=== PATIENT | female | born 1965 | race Caucasian/White ===

== ENCOUNTER 2024-12-02 19:39 | Emergency (ER) | payer MEDICAID, SELFPAY ==
[2024-12-02] VITALS (10 sets, daily range): BP systolic 138–164; BP diastolic 72–90; PULSE 62–76; RESP 14–26; TEMP 36.4; O2SAT 95–98; BMI 25.0
--- NOTE | 2024-12-02 23:04 | DI.CT.S_ITS ---
PROCEDURE: CT LUMBAR SPINE WO CON INDICATIONS: BACK pain TECHNIQUE: Noncontrast 3 mm thick sections acquired from the T12 level to the sacrum. Sagittal and coronal reformats were constructed. For radiation dose reduction, the following was used: automated exposure control. COMPARISON: None. FINDINGS: Image quality: Excellent. Bones: There is normal bony alignment. No acute vertebral body compression fractures. No suspicious lytic or blastic bony lesions. No pars defects. T12-L1: Mild loss of disc height and mild degenerative endplate changes. No significant disc bulge, canal stenosis or neural foraminal narrowing. L1-L2: Unremarkable. L2-L3: Unremarkable. L3-L4: Mild degenerative endplate changes are seen. Mild broad-based, slightly more right-sided disc bulge and bilateral facet arthrosis with mild right-sided neural foraminal narrowing. No central canal stenosis. L4-L5: Degenerative endplate changes. Broad-based disc bulge and bilateral facet arthrosis with [id number] central canal stenosis and moderate to severe bilateral neural foraminal narrowing. L5-S1: Diffuse disc herniation with bilateral facet arthrosis causing [id number] central canal stenosis and moderate bilateral neural foraminal narrowing. Soft tissues: No retroperitoneal masses or hematomas. Visualized aorta is normal in caliber. IMPRESSION: 1. No acute compression fracture or spondylolisthesis in lumbar spine. No suspicious bony lesions. 2. Mild spondylitic changes are noted at L3-4 through L5-S1 levels causing various degrees of central canal stenosis and bilateral neural foraminal narrowing as above. 3. No gross paraspinous soft tissue abnormalities. Dictated by: Suleiman Alfonso M.D. on 12/02/2024 at 23:39 Approved by: Suleiman Alfonso M.D. on 12/02/2024 at 23:44
[2024-12-02] MEDS: IBUPROFEN 400 MG TABLET 800 MG PO (23:16)
--- NOTE | 2024-12-02 23:29 | ED_ITS ---
HPI - Back Pain/Injury General Chief Complaint: Back Pain/Injury Stated Complaint: Sciatica Time Seen by Provider: 12/02/24 19:39 Source: patient and EMS History of Present Illness HPI Narrative: 59y F hx of sciatica x 8 months previously on lyrica, meloxicam, methacarbamol, presents with initially left-sided back pain radiating down the leg and now also today to the right side of the back radiating down the leg as well. She denies any bowel or bladder incontinence fever chills body aches urinary complaints. She was seen by the spine surgeon who ordered an MRI that is pending. Lyrica she is unable to take as an started to make her legs swell all the other medicines have not worked up to this point. Other than what is stated 14 pt review of system is negative. Related Data Previous Rx's ?Medication ?Instructions ?Recorded hydrocodone 5 mg-acetaminophen 325 1 tab PO Q4-6H PRN pain #20 tabs 12/03/24 mg tablet Allergies Allergy/AdvReac Type Severity Reaction Status Date / Time pregabalin (From Lyrica) AdvReac Verified 12/02/24 20:14 Review of Systems Review of Systems ROS Unobtainable: All systems reviewed & are unremarkable except as noted in HPI and below Patient History Smoking Status: Current every day smoker tobacco type: cigarettes Exam Narrative Exam Narrative: GENERAL: [59] year old patient appears stated age. Well-developed patient, in mild distress. HEAD: Atraumatic. Normocephalic. EYES: Pupils equal round and reactive. Extraocular motions intact. No scleral icterus. No injection or drainage. ENT: Nose without bleeding, purulent drainage. Throat without erythema, tonsillar hypertrophy or exudate. Airway patent. NECK: Trachea midline. Non tender CARDIOVASCULAR: Regular rate and rhythm without murmurs, gallops, or rubs. RESPIRATORY: Clear to auscultation. Breath sounds equal bilaterally. No wheezes, rales, or rhonchi. GASTROINTESTINAL: Abdomen soft, non-tender, nondistended. EXTREMITIES: No edema or joint tenderness. BACK: Nontender without deformity or crepitance. No flank tenderness. NEURO: AOx3. SKIN: No rash or erythema of visible areas Initial Vital Signs Initial Vital Signs: Vital Signs Temperature 97.6 F 12/02/24 20:13 Pulse Rate 73 12/02/24 20:13 Respiratory Rate 18 12/02/24 20:13 Blood Pressure 140/90 12/02/24 20:13 Pulse Oximetry 96 12/02/24 20:13 Oxygen Delivery Method Room Air 12/02/24 20:13 Procedures [facility] [place] Procedure Name of Procedure: Bilateral trigger point steroid injection Time out performed: Yes Technique/Description of procedure performed: Patient draped and prepped in a sterile fashion. Using 20-1-1/2 gauge needle with 5 cc syringe consisting of Kenalog 40 mg 1 mL and lidocaine 2% without epi 9 mL patient was injected at else for paralumbosacral region L4,5 and S1 bilaterally Patient tolerated procedure: Well Complications: none Course Orders Ordered: ED Orders 12/02/24 23:04 CT lumbar spine wo con Stat 12/02/24 23:17 Urine Culture Stat Urine Microscopic Stat Discontinued Medications Hydrocodone Bitart/Acetaminophen (Hydrocodone/Acet 5/325 Tablet) 1 tab PO NOW ONE Stop: 12/02/24 23:05 Last Admin: 12/02/24 23:17 Dose: 1 tab Documented By: ARAINA Ibuprofen (Ibuprofen 400 Mg Tablet) 800 mg PO NOW ONE Stop: 12/02/24 23:05 Last Admin: 12/02/24 23:16 Dose: 800 mg Documented By: ARIANA Vital Signs Vital signs: Vital Signs - 8 hr 12/02/24 20:13 Temperature 97.6 F Pulse Rate 73 Respiratory Rate 18 Blood Pressure 140/90 Pulse Oximetry 96 Oxygen Delivery Method Room Air MDM - Back Pain/Injury Lab Data Labs: Lab Results 12/02/24 Range/Units 23:17 Urine RBC None seen (0-5/HPF) Urine WBC 5-10/hpf H (0-5/HPF) Ur Squamous Epith Cells 1-5 /hpf (0-5/HPF) Ur Transition Epith Cell 0-1/hpf (0-5/HPF) Urine Bacteria Occasional (0-1) (None) Ur Culture Indicated? Specimen cultured Vol Urine Centrifuged 10ml (spun) Urine Dip Bedside Urine Glucose Negative Bedside Urine Bilirubin - Negative Bedside Urine Ketone - Negative Urine Specific [place] 1.010 Bedside Urine Occult Blood - Negative Bedside Urine pH 7.0 Bedside Urine Protein - Negative Bedside Urine Urobilinogen - Negative Bedside Urine Nitrite - Negative Bedside Urine Leukocytes ++ [address] scan - abdomen/pelvis: Radiologist's Impression: [address] [address] [address] Scan Report Signed Patient: Shawnee Garcia MR#: [id number] : 1965 Acct:[id number] Age/Sex: 59 / F Date of Service: 12/02/24 Loc: ED Accession Number: [id number] Procedure: CT lumbar spine wo con Ordering Provider: Gary Hawley D.O. PROCEDURE: CT LUMBAR SPINE WO CON INDICATIONS: BACK pain TECHNIQUE: Noncontrast 3 mm thick sections acquired from the T12 level to the sacrum. Sagittal and coronal reformats were constructed. For radiation dose reduction, the following was used: automated exposure control. COMPARISON: None. FINDINGS: Image quality: Excellent. Bones: There is normal bony alignment. No acute vertebral body compression fractures. No suspicious lytic or blastic bony lesions. No pars defects. T12-L1: Mild loss of disc height and mild degenerative endplate changes. No significant disc bulge, canal stenosis or neural foraminal narrowing. L1-L2: Unremarkable. L2-L3: Unremarkable. L3-L4: Mild degenerative endplate changes are seen. Mild broad-based, slightly more right-sided disc bulge and bilateral facet arthrosis with mild right-sided neural foraminal narrowing. No central canal stenosis. L4-L5: Degenerative endplate changes. Broad-based disc bulge and bilateral facet arthrosis with [id number] central canal stenosis and moderate to severe bilateral neural foraminal narrowing. L5-S1: Diffuse disc herniation with bilateral facet arthrosis causing [id number]-[id number]-kbusdfmx central canal stenosis and moderate bilateral neural foraminal narrowing. Soft tissues: No retroperitoneal masses or hematomas. Visualized aorta is normal in caliber. IMPRESSION: 1. No acute compression fracture or spondylolisthesis in lumbar spine. No suspicious bony lesions. 2. Mild spondylitic changes are noted at L3-4 through L5-S1 levels causing various degrees of central canal stenosis and bilateral neural foraminal narrowing as above. 3. No gross paraspinous soft tissue abnormalities. MDM Narrative Medical decision making narrative: Vital signs, nurse triage note, medication list, previous ER visits, and all imaging studies reviewed. CT lumbar showed no acute compression fracture or spo ndylolisthesis in the lumbar spine no suspicious bony lesion. Mild spondylitic changes are noted at L3-L4 through L5-S1 levels causing various degrees of central canal stenosis and bilateral neuroforaminal narrowing. No gross paraspinous soft tissue abnormalities. Patient received ibuprofen [place] and trigger point steroid injection for which patient tolerated procedure with no complications. Discharge Plan Departure Patient Disposition: Home Clinical Impression: Low back pain Qualifiers: Chronicity: acute Back pain laterality: bilateral Sciatica presence: with sciatica Sciatica laterality: bilateral sciatica Qualified Code(s): M54.42 - Lumbago with sciatica, left side Instructions: DI for Low Back Pain Activity Restrictions/Additional Instructions: Return with new or worsening symptoms. Take your medicines directed. Follow up with MRI as outpatient and spine surgeon at your next appointment. Prescriptions: New hydrocodone-acetaminophen 5-325 mg tablet 1 tab PO Q4-6H PRN (Reason: pain) Qty: 20 0RF Stand Alone Forms: Patient Portal/API
[2024-12-02 23:35] LABS: Culture Indicated Urine Specimen Cultured
[2024-12-03] VITALS: PULSE 72; RESP 20; O2SAT 95
[2024-12-03 00:30] VITALS: PULSE 68; RESP 23; O2SAT 95
[2024-12-03 01:00] VITALS: PULSE 67; RESP 22; O2SAT 96
[2024-12-03] MEDS: LIDOCAINE 2% INJ MDV 20ML 20 ML INJ (01:21)
[2024-12-03] MEDS: TRIAMCINOLONE 40 MG/ML VIAL INJ (01:21)
== END 2024-12-03 01:56 | disposition home or self-care (01) ==
PROVIDERS: Emergency Provider Family Medicine
DX: M54.42 Lumbago with sciatica, left side (principal)
CPT/HCPCS: 20553; 72131; 81003; 81015; 87086; 99283; 99284